=== PATIENT | female | born 1945 | race Caucasian/White ===

== ENCOUNTER → 2023-11-17 | Outpatient (CLI) | payer MEDICARE, SELFPAY ==
--- NOTE | 2023-11-17 10:00 | PET_ITS ---
EXAMINATION: FDG PET/CT ? INDICATIONS: 78-year-old female with a history of primary lung carcinoma, presenting for initial staging examination. ? COMPARISON EXAMINATION: None available ? INDEX LESION SIZE SUV INTERPRETATION Left upper lung, left upper lobe 17.2 mm 9.7 Fulfills quantitative criteria for viable neoplasm ? Bilateral thoracic perihilum 9.3 mm, largest 3.6 max Fulfills borderline quantitative criteria for viable neoplasm ? TECHNIQUE: Following the intravenous administration of 14.33 mCi of F-18 deoxyglucose via the right hand, multiplanar image acquisitions of the head, neck, chest, abdomen and pelvis to the level of the midthigh, obtained at one-hour post radiopharmaceutical administration contemporaneously interpreted with the current CT of the chest, abdomen and pelvis dated 11/17/2023 via coregistration reveal: SERUM GLUCOSE LEVEL:? 76 mg/dL? HEIGHT:?? 63 inches WEIGHT:?? 120 pounds ? FINDINGS: ? HEAD/NECK:? There is no evidence of abnormal increased glucose metabolism in the pharyngeal mucosal space, parapharyngeal space, oropharynx, bilateral-lateral and anterior neck, hypopharynx and distribution of the larynx. ? The visualized portion of the cerebral cortical-subcortical structures demonstrate symmetric and preserved glucose metabolism. ? CHEST: Facilitated FDG concentration is noted in the left upper anterior lung zone, left upper lobe. The calculated maximum standard uptake value is 9.7. The maximum axial diameter of the metabolic, morphologic abnormality is 17.2 mm. Increased labeled glucose is identified in the bilateral thoracic perihilum. The calculated maximum standard uptake value is 3.6. The maximum axial diameter of the largest soft tissue density is 9.3 mm. ? CT of the chest demonstrates the following anatomic characteristics: Coronary arterial calcification is observed. No additional parenchymal densities-nodules are demonstrated within the bilateral hemithorax with increased FDG uptake. Right and left axillary soft tissue densities are ametabolic. ? ABDOMEN/PELVIS:? Normal physiologic distribution of the radiopharmaceutical is identified in the hepatic (2.7) and splenic parenchyma, both renal units, urinary bladder, and visualized intestinal tract. ? CT of the abdomen and pelvis is remarkable for the following: Calcifications are defined within the splenic parenchyma. Cholelithiasis is identified. Calcified phlebolith formation is noted in the bilateral lower hemipelvis. Calcification is noted within the retained uterus. Right and left inguinal soft tissue densities are ametabolic. ? SKELETAL:? Degenerative changes defined in the thoracic and lumbar spine demonstrate no evidence of increased glucose metabolism. There are no sclerotic, mixed sclerotic-lytic, or primarily lytic changes defined in the axial skeletal structures with evidence of increased FDG uptake. ? PET/PET/CT Tumor Base -Thigh Init IMPRESSION: 1. ABNORMAL EXAMINATION INDICATIVE OF MALIGNANT-VIABLE NEOPLASM. 2. Increased radiopharmaceutical concentration apparent in the left upper lung field, left upper lobe, fulfills quantitative criteria for malignant transformation. 3. Facilitated FDG concentration manifest in the bilateral thoracic perihilum fulfill borderline quantitative criteria for viable neoplasm. (Katelynn et al, Journal of Clinical Oncology, 16:2142, 1998). ? Electronic Signature Ruy Gonzalez D.O. Accurate Quantification of SUVs for this report are calculated using the exclusive [employer]. ([place] Patent No. [id number] B2 [phone] [place] patent [phone]). Standardization and correction of the FDG SUV metric via [employer] technology allow for vendor non-specific objective quantitative examination comparison and optimization of the sensitivity and specificity of the FDG PET-CT examination. . [email or web address] Electronically Signed: Ruy Gonzalez DO at 23:38 EST ,
--- OUTSIDE RECORDS SUMMARY | 2023-11-17 10:35 | XMS RPT_ITS | CCD ---
Author Name Unknown Address [address] [place] [address] Organization [facility] Care Team Providers Care Snack Foods Mixer Operator Name Role Phone JACOB BLACK Unavailable Unavailable VACCARIELLOANNETTA Unavailable Unavailable HAMDAN FIRAS M A Unavailable Unavailable HAMDAN FIRARACELI M A Unavailable Unavailable VACCARIEVIN CHAPARRO Unavailable Unavailable RIDERSABAS Unavailable Unavailable SABAS LEVY Unavailable Unavailable SHAYY ESPINOZA Unavailable Unavailable Annetta Villalobos MD Unavailable [phone] Sadiq SEGURA, Dr. Tommy Parish Unavailable [phone] Dr. Chris Grijalva MD Unavailable [facility] ([place]) Unavailable AmeRETIRED Dr. Cate SEGURA Unavailable Israel Glass, [facility] Unavailable Lisa vailable Maude TRAIN DRIVER, Fe Unavailable Brandi Callahan Unavailable Unavailable Rudi HOUSER, Dannielle Unavailable [place]augh TRAIN DRIVER, Porsche K Unavailable Unavai lable Vess TRAIN DRIVER, Neilee L Unavailable Unavailable Zaugg TRAIN DRIVER, Trisha Unavailable Unavailable Unavailable Unavailable ANNETTA VILLALOBOS Consulting Unavailable ANNETTA VILLALOBOS Referring Unavailable ANNETTA SHUKLA MD Admitting Unavailable ANNETTA SHUKLA MD Primary Care Unavailable ANNETTA SHUKLA MD Attending Unavailable PROVIDER, UNKNOWN Consulting Unavailable PROVIDER, UNKNOWN Consulting Unavailable PROVIDER, UNKNOWN Consulting Unavailable Jenaro SEGURA, Dr. Collin Mullen Unavailable Medications Completed/Discontinued Medications Medication Drug Class(es) Dates Sig (Normalized) Sig (Original) ascorbic acid 500 mg chewable tablet (5 sources) Vitamin C Vitamin C 500 MG Oral Tablet Chewable ; (500 MG) Status: Inactive aspirin 325 mg oral tablet (5 sources) Platelet Aggregation Inhibitor, Nonsteroidal Anti-inflammatory Drug Aspirin 325 MG Oral Tablet ; (325 MG) Status: Inactive 12 hr dextromethorphan polistirex 6 mg/ml extended release suspension (5 sources) Uncompetitive V-bndvzw-R-aspartat e Receptor Antagonist, Sigma-1 Agonist Delsym 30 MG/5ML Oral Suspension Extended Release ; (30 MG/5ML) Status: Inactive ergocalciferol 1.25 mg oral capsule (5 sources) Provitamin D2 Compound take 1 capsule by mouth once Vitamin D (Ergocalciferol ) 1.25 MG (48708 UT) Oral Capsule ; (1.25 MG (63049 UT)) Status: Inactive meclizine hydrochloride 25 mg oral tablet (5 sources) Antiemetic Start: 12-04-2016 End: 06-05-2017 take 1 tablet by mouth every eight hours as needed Meclizine HCl 25 MG Oral Tablet ; 1 (one) Tablet Tablet every eight hours, as needed for 0 days Quantity: 20 {Tablet} Refills: 0 Ordered: 05-Jun-2017 EDGAR Santoro Start: 04-Dec-2016 End: 05-Jun-2017 Status: Inactive Comments: Medication taken as needed. Problems Active Problems Problem Classification Problem Date Documented Date Episodic/Chronic Adjustment disorders (10 sources) Grief finding; Translations: [Adjustment disorder with depressed mood] 04-15-2023 Chronic Administrative/social admission (20 sources) Caregiver role strain; Translations: [Dependent relative needing care at home] 10-10-2022 Episodic Cardiac dysrhythmias (15 sources) Multiple premature ventricular complexes; Translations: [Ventricular premature depolarization] 06-10-2017 Chronic Cardiac dysrhythmias (20 sources) Palpitations; Translations: [Palpitations] 02-01-2016 Episodic Conditions associated with dizziness or vertigo (7 sources) Dizziness; Translations: [Dizziness and giddiness] 06-02-2016 Episodic Essential hypertension (20 sources) Hypertensive disorder; Translations: [Essential (primary) hypertension] 07-13-2023 Chronic Menopausal disorders (10 sources) Postmenopausal bleeding 09-13-2010 Chronic Mood disorders (10 sources) Seasonal affective disorder; 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] 08-10-2019 Chronic Nausea and vomiting (5 sources) Vomiting; Translations: [Vomiting, unspecified] 08-27-2011 Episodic Nonspecific chest pain (5 sources) Other chest pain 09-05-2010 Episodic Other aftercare (9 sources) Post-discharge follow-up; Translations: [Encounter for follow-up examination after completed treatment for conditions other than malignant neoplasm] 12-24-2020 Episodic Other aftercare (5 sources) Long-term (current) use of other medications 05-09-2011 Episodic Other and unspecified benign neoplasm (10 sources) History of polyp of colon; Translations: [Personal history of colonic polyps] 07-13-2023 Episodic Other infections; including parasitic (15 sources) Personal history of other infectious and parasitic diseases Onset: 10-05-2020 07-13-2023 Episodic Other lower respiratory disease (5 sources) H/O: pneumonia; Translations: [Personal history of pneumonia (recurrent)] 12-24-2020 Episodic Other lower respiratory disease (10 sources) Dyspnea on exertion; Translations: [Shortness of breath] 02-01-2016 Episodic Other lower respiratory disease (2 sources) Solitary nodule of lung; Translations: [Solitary pulmonary nodule] 10-19-2023 Episodic Other nutritional; endocrine; and metabolic disorders (10 sources) Overweight in adulthood with body mass index of 25 or more but less than 30; Translations: [Body mass index (BMI) 25.0-25.9, adult] 03-28-2021 Episodic Other screening for suspected conditions (not mental disorders or infectious disease) (20 sources) Patient encounter status; Translations: [Encounter for screening for cardiovascular disorders] 03-26-2021 Episodic Residual codes; unclassified (15 sources) Body mass index 20-24 - normal; Translations: [Body mass index (BMI) 22.0-22.9, adult] 07-13-2023 Episodic Residual codes; unclassified (20 sources) Genetic disorder carrier; 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 The patient has a balanced diet and takes supplemental vitamins. The patient exercises 3 - 4 times per week and sleeps 7 hours per night. The patient denies having trouble with bathing, dressing/grooming, toileting, preparing meals and ambulating. The patient denies having trouble with grocery shopping, driving, use of telephone, housework, laundry, preparing/taking medications and finances. The patient does not perform monthly breast self exam. The patient has a Healthcare Power of Passenger Rate Clerk and a Living Will. Note for [facility] Well Adult : -Spouse this year. 07-13-2023 Unclassified (3 sources) Transition into care - The patient is transitioning into care from a hospital and a summary of care was reviewed. 12-24-2020 Unclassified (1 source) [ADDITIONAL REASON] Follow up from hospital stay - Name of Hospital: . Date of Admission: 12/10/20. Date of Discharge: 12/14/20. The patient was hospitalized for pneumonia. New medications include see list. Patient was discharged to home. Note for Follow up from hospital stay : -She is feeling much better. 12-24-2020 Unclassified (5 sources) [facility] Well Adult - In general the patient feels well with no complaints, has good energy level and is sleeping well. The patient has a balanced diet and takes supplemental vitamins. The patient exercises weekly and sleeps 7 hours per night. The patient denies having trouble with bathing, dressing/grooming, toileting, preparing meals and ambulating. The patient denies having trouble with grocery shopping, driving, use of telephone, housework, laundry, preparing/taking medications and finances. The patient does not perform monthly breast self exam. The patient does not have Healthcare Power of Passenger Rate Clerk or Living Will. 08-10-2019 Unclassified (2 sources) [ADDITIONAL REASON] Follow up from hospital stay - Name of Hospital: [place]. Date of Admission: 05/31. Date of Discharge: 06/01/17. The patient was hospitalized for procedure by cardio. No new medications were prescribed. Consultations ordered while in the hospital include cardiology. No post hospital therapies were ordered. Patient was discharged to home. Current Symptoms: no symptoms. 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 She will see him again 07/01. She is to have her bilateral groin incision sites checked here. The metoprolol has been stopped for now.She has no concerns. 06-05-2017 Unclassified (5 sources) Unspecified Diagnosis 01-19-2017 Unclassified (1 source) MCR Well Adult - In general the patient feels well with minor complaints, has decreased energy level and is sleeping poorly. The patient has a balanced diet and takes supplemental vitamins. The patient does not exercise and sleeps 7 hours per night. The patient denies having trouble with bathing, dressing/grooming, toileting, preparing meals and ambulating. The patient denies having trouble with grocery shopping, driving, use of telephone, housework, laundry, preparing/taking medications and finances. The patient does not perform monthly breast self exam. The patient does not have Healthcare Power of Passenger Rate Clerk or Living Will. 01-15-2017 Unclassified (1 source) [ADDITIONAL REASON] Follow-up for multiple chronic conditions (RAH) - The patient is here for follow-up of hypertension. The patient always takes the prescribed medications. No side effects noted. The patient has an active lifestyle but no regular exercise program. The patient's out of office blood pressure checks occur rarely and dietary compliance is good with close adherance to recommendations. The patient has been seen by an travel specialist in the past 12 months and experienced symptoms of low blood sugar more than once since the last rtn visit (tired), but has not had numbness in the feet, had tingling in the feet, had burning in the feet, had an A1c level completed in the past 3 months or had a chemistry profile completed since the last visit. The patient's last lipid profile was (04/2012). The patient states that weight has increased (up by 2#). Note for Multiple chronic conditions follow-up : sees Line Staker for palpitationshas appt the end of 01-15-2017 Unclassified (5 sources) MCR Well Adult - In general the patient feels well with minor complaints (nightsweats, cataracts, difficulty swallowing, chest pain, irregular heartbeat, diarrhea and constipation, muscle pain and easy bruising). The patient does not exercise. Over the past 2 weeks, the patient has not been feeling down, depressed, or hopeless or feeling little interest or pleasure in doing things. The patient denies having trouble with bathing, dressing/grooming, toileting, preparing meals and ambulating. The patient denies having trouble with grocery shopping, driving, use of telephone, housework, laundry, preparing/taking medications and finances. The first day of the last menstrual period was : (remote). Date of most recent cholesterol screening : (2005). There has been no glucose screening. Patient has not had a Zostavax vaccine. Patient has not had a Pneumovax vaccine. Patient has not received a recent influenza vaccine. Patient has not been immunized against Tetanus. Most recent Pap smear : (2005 normal). Patient has not had a screening mammogram. Patient has not had bone density screening. 04-12-2012 Unclassified (5 sources) follow up - She is here for follow up of hypertension and heart palpitations. She last saw her sock knitter, Dr. Levy, in August 2009 and he suggested follow up with her primary care. She was here last August for other problems and this was addressed somewhat then. She continues to have days with irregular heart rate and this is one of those days. She plans to get Medicare within a few months and will pursue getting the recommended colonoscopy at that time. 06-02-2011 Unclassified (5 sources) Vaginal bleeding - The bleeding has been occurring for 1 day. The bleeding has been described as spotting (one day). The patient is not currently bleeding. No tissue or blood clots were noted with the bleeding. The first date of the last menstrual period was : (no menses x 18 years or more). Menstruation is absent (menopausal). Currently : no. There is a medical history of ectopic and tubal sterilization. 09-05-2010 Unclassified (4 sources) Follow up from hospital stay - Name of Hospital: [facility] Date of Admission: 12/10/20. Date of Discharge: 12/14/20. The patient was hospitalized for pneumonia. New medications include see list. Patient was discharged to home. Note for Follow up from hospital stay : -She is feeling much better. 12-24-2020 Unclassified (7 sources) [ADDITIONAL REASON] Transition into care - The patient is transitioning into care from a hospital and a summary of care was reviewed. 12-24-2020 Unclassified (3 sources) Follow up from hospital stay - Name of Hospital: [place]. Date of Admission: 05/31. Date of Discharge: 06/01/17. The patient was hospitalized for procedure by cardio. No new medications were prescribed. Consultations ordered while in the hospital include cardiology. No post hospital therapies were ordered. Patient was discharged to home. Current Symptoms: no symptoms. 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 She will see him again 07/01. She is to have her bilateral groin incision sites checked here. The metoprolol has been stopped for now.She has no concerns. 06-05-2017 Unclassified (4 sources) Follow-up for multiple chronic conditions (RAH) - The patient is here for follow-up of hypertension. The patient always takes the prescribed medications. No side effects noted. The patient has an active lifestyle but no regular exercise program. The patient's out of office blood pressure checks occur rarely and dietary compliance is good with close adherance to recommendations. The patient has been seen by an travel specialist in the past 12 months and experienced symptoms of low blood sugar more than once since the last rtn visit (tired), but has not had numbness in the feet, had tingling in the feet, had burning in the feet, had an A1c level completed in the past 3 months or had a chemistry profile completed since the last visit. The patient's last lipid profile was (04/2012). The patient states that weight has increased (up by 2#). Note for Multiple chronic conditions follow-up : sees Line Staker for palpitationshas appt the end of 01-15-2017 Unclassified (4 sources) [ADDITIONAL REASON] MCR Well Adult - In general the patient feels well with minor complaints, has decreased energy level and is sleeping poorly. The patient has a balanced diet and takes supplemental vitamins. The patient does not exercise and sleeps 7 hours per night. The patient denies having trouble with bathing, dressing/grooming, toileting, preparing meals and ambulating. The patient denies having trouble with grocery shopping, driving, use of telephone, housework, laundry, preparing/taking medications and finances. The patient does not perform monthly breast self exam. The patient does not have Healthcare Power of Passenger Rate Clerk or Living Will. 01-15-2017 Unclassified (1 source) Follow up from hospital stay - Name of Hospital: [facility] Date of Admission: 10/14/23. The patient was hospitalized for elevated bp. 10-19-2023 Unclassified (1 source) Follow up from hospital stay - Name of Hospital: [facility] Date of Admission: 10/14/23. The patient was hospitalized for dizziness and elevated bp. Patient was discharged to home. Note for Follow up from hospital stay : -ER note does not indicate what bp was at admission. Eventually at d/c bp was 134/76. She was sent home with ondansetron which she feels makes her weak. She had a normal EKG and normal labs. They did tell her she needs follow up for a lung nodule. 10-19-2023 Results Test Name Value Interpretation Reference Range Facil ity Vital Signs Date Time Vital Sign Value Performing Clinician Miriam arora 10-19-2023 13:38-0500 Body height 157.48 cm Annetta Mayfield Work Phone: [employer]; [employer] 10-19-2023 13:38-0500 Body mass index (BMI) [Ratio] 23.05 kg/m2 Annetta Villalobos MD Work Phone: [employer]; [employer]. 10-19-2023 13:38-0500 Body surface area Derived from formula 1.57 m2 Annetta Villalobos MD Work Phone: [employer]; [employer]. 10-19-2023 13:38-0500 Body weight 57.15 kg Annetta Mayfield Work Phone: [employer]; [employer]. 10-19-2023 13:38-0500 Diastolic blood pressure 70 mm[Hg] Annetta Villalobos MD Work Phone: [employer]; [employer] Encounters Encounter Date Encounter Type Care Provider Facility Start: 10-19-2023 End: 10-19-2023 Office outpatient visit 25 minutes Annetta Villalobos MD Work Phone: [employer] Start: 10-19-2023 Follow-up encounter Annetta workman MD Work Phone: [employer] Start: 10-14-2023 End: 10-14-2023 Emergency department patient visit ANNETTA VILLALOBOS [facility] Start: 08-14-2023 End: 08-14-2023 Historical Summary Annetta Villalobos MD Work Phone: [employer] Start: 07-13-2023 End: 07-13-2023 Patient encounter procedure Annetta Villalobos MD Work Phone: [employer] Start: 07-06-2023 End: 07-06-2023 Orders Annetta Villalobos MD Work Phone: [employer] Start: 07-01-2023 End: 07-01-2023 Procedure Annetta Villalobos MD Work Phone: [employer] Start: 04-15-2023 End: 04-15-2023 Patient encounter procedure Annetta Villalobos MD Work Phone: [employer] Start: 10-10-2022 End: 10-10-2022 Patient encounter procedure Annetta Villalobos MD Work Phone: [employer] Start: 04-09-2022 End: 04-09-2022 Patient encounter procedure Fe Santoro LPN Work Phone: [employer] Start: 04-01-2022 End: 04-02-2022 Orders Annetta Villalobos MD Work Phone: [employer] Start: 02-12-2022 End: 02-12-2022 Orders Annetta Villalobos MD Work Phone: [employer] Start: 09-20-2021 End: 09-20-2021 Patient encounter procedure Annetta Villalobos MD Work Phone: [employer] Start: 03-28-2021 End: 03-28-2021 Patient encounter procedure Annetta Villalobos MD Work Phone: [employer] Start: 03-28-2021 End: 03-28-2021 Historical Summary Annetta Villalobos MD Work Phone: [employer] Start: 03-20-2021 End: 03-20-2021 Orders Annetta Villalobos MD Work Phone: [employer] Start: 02-26-2021 End: 02-27-2021 Orders Annetta Villalobos MD Work Phone: [employer] Start: 12-24-2020 End: 12-24-2020 Patient encounter procedure Annetta Villalobos MD Work Phone: [employer] Start: 03-08-2020 End: 03-08-2020 Follow-up encounter Annetta Villalobos MD Work Phone: [employer] Start: 08-10-2019 End: 08-10-2019 Patient encounter procedure Annetta Villalobos MD Work Phone: [employer] Start: 07-28-2019 End: 07-28-2019 Orders Annetta Villalobos MD Work Phone: [employer] Start: 07-01-2019 End: 07-01-2019 Orders Annetta Villalobos MD Work Phone: [employer] Start: 09-04-2017 End: 09-04-2017 Patient encounter procedure Annetta Villalobos MD Work Phone: [employer] Start: 07-28-2017 End: 07-28-2017 Telephone follow-up Annetta Villalobos MD Work Phone: [employer] Start: 07-27-2017 End: 07-28-2017 Bowen VILLALOBOS Facility:A Start: 06-10-2017 End: 06-10-2017 Serafin Villalobos MD Work Phone: [employer] Start: 06-05-2017 End: 06-05-2017 Orders Annetta Villalobos MD Work Phone: [employer] Start: 06-05-2017 End: 06-05-2017 Patient encounter procedure Annetta Villalobos MD Work Phone: [employer] Start: 06-04-2017 End: 06-04-2017 Historical Summary Annetta Villalobos MD Work Phone: [employer] Start: 06-03-2017 End: 06-03-2017 Telephone follow-up Annetta Villalobos MD Work Phone: [employer] Start: 06-01-2017 End: 06-02-2017 [facility] JACOB BLACK Facility:A Start: 01-19-2017 End: 01-19-2017 Orders Annetta Villalobos MD Work Phone: [employer] Start: 01-15-2017 End: 01-15-2017 Patient encounter procedure Annetta Villalobos MD Work Phone: [employer] Start: 01-15-2017 End: 01-15-2017 Patient encounter status Annetta Villalobos MD Work Phone: [employer]; [employer]. Start: 06-02-2016 End: 06-02-2016 Orders Annetta Villalobos MD Work Phone: [employer] Start: 02-01-2016 End: 02-01-2016 Orders Annetta Villalobos MD Work Phone: [employer]. Start: 01-02-2016 End: 01-02-2016 Historical Summary Annetta Villalobos MD Work Phone: [employer] Start: 12-21-2015 End: 12-21-2015 Patient encounter procedure Annetta Villalobos MD Work Phone: [employer] Start: 10-23-2014 End: 10-23-2014 Patient encounter procedure Annetta Villalobos MD Work Phone: [employer] Start: 10-21-2013 End: 10-21-2013 Patient encounter procedure Annetta Villalobos MD Work Phone: [employer] Start: 12-01-2012 End: 12-01-2012 Historical Summary Annetta Villalobos MD Work Phone: [employer] Start: 04-21-2012 End: 04-21-2012 Historical Summary Annetta Villalobos MD Work Phone: [employer] Start: 04-14-2012 End: 04-14-2012 Orders Annetta Villalobos MD Work Phone: [employer] Start: 04-12-2012 End: 04-12-2012 Patient encounter procedure Annetta Villalobos MD Work Phone: [employer] Start: 04-12-2012 End: 04-12-2012 Routine general medical examination at a [facility] facility Annetta Villalobos MD Work Phone: [employer]; [employer] Start: 08-27-2011 End: 08-27-2011 Medication Annetta Villalobos MD Work Phone: [employer] Start: 06-02-2011 End: 06-02-2011 Patient encounter procedure Annetta Villalobos MD Work Phone: [employer] Start: 05-09-2011 End: 05-09-2011 Medication Annetta Villalobos MD Work Phone: [employer] Start: 09-19-2010 End: 09-19-2010 Preoperative state Annetta Villalobos MD Work Phone: [employer]; [employer]. Start: 09-19-2010 End: 09-19-2010 Procedure Annetta Villalobos MD Work Phone: [employer] Start: 09-13-2010 End: 09-13-2010 Orders Annetta Villalobos MD Work Phone: [employer] Start: 09-05-2010 End: 09-05-2010 Patient encounter procedure Annetta Villalobos MD Work Phone: [employer]. Patient encounter procedure Fe Santoro TRAIN DRIVER Work Phone: [employer] [employer]. Patient encounter procedure Fe Santoro TRAIN DRIVER Work Phone: [employer] [employer]. Procedures Date Procedure Procedure Detail Performing Clinician Start: 10-19-2023 End: 10-19-2023 Most recent diastolic blood pressure < 80 mm hg Annetta Villalobos MD Work Phone: Start: 10-19-2023 End: 10-19-2023 Most recent systolic blood pres>/equal 140 mm hg Annetta Villalobos MD Work Phone: Start: 10-14-2023 Urinalysis ANNETTA WORKMAN Plan of Treatment Date Care Activity Detail Author Start: 07-01-2019 Mammogram, screening Mammogram , Bilateral Screening Start: 01-Jul-2019 Intent [employer] [employer]. Immunizations Immunization Date Immunization Notes Care Provider Elsa avila 08-10-2019 zoster vaccine, live Annetta negrete MD Work Phone: [employer] [employer] Payers Date Payer Category Payer Unknown [id number] 1945 Unknown [id number] Medicare [id number] Unknown [facility] Social History Date Type Detail Facility Caffeine Use Caffeine Use [employer]. Tobacco Use: Tobacco Use: ; Never smoker. [employer] [employer]. Female [employer]. Work Phone: Never smoked tobacco [employer] [employer]. Work Phone: Summary Purpose Family History Arthritis Status:Active Comments:grandfa ther Cerebrovascular Accident Status:Active Comment s:aunt Coronary Artery Disease Status:Active Comments :Mother. grandmother Diabetes Mellitus Type II Status:Active Commen ts:mother, aunt Father Status:Active Comments: d. Lung Cancer Status:Active Comments:Father. Mother Status:Active Comments: d. in her 80's Ovarian Cancer Status:Active Comments:Mother. Uterine Cancer (Renamed from uterin cancer) Status:Active Comments:mother of this in her 80s Arthritis Status:Active Comments:grandfa ther Cerebrovascular Accident Status:Active Comment s:aunt Coronary Artery Disease Status:Active Comments :Mother. grandmother Diabetes Mellitus Type II Status:Active Commen ts:mother, aunt Father Status:Active Comments: d. Lung Cancer Status:Active Comments:Father. Mother Status:Active Comments: d. in her 80's Ovarian Cancer Status:Active Comments:Mother. Uterine Cancer (Renamed from uterin cancer) Status:Active Comments:mother of this in her 80s Arthritis Status:Active Comments:grandfa ther Cerebrovascular Accident Status:Active Comment s:aunt Coronary Artery Disease Status:Active Comments :Mother. grandmother Diabetes Mellitus Type II Status:Active Commen ts:mother, aunt Father Status:Active Comments: d. Lung Cancer Status:Active Comments:Father. Mother Status:Active Comments: d. in her 80's Ovarian Cancer Status:Active Comments:Mother. Uterine Cancer (Renamed from uterin cancer) Status:Active Comments:mother of this in her 80s Arthritis Status:Active Comments:grandfa ther Cerebrovascular Accident Status:Active Comment s:aunt Coronary Artery Disease Status:Active Comments :Mother. grandmother Diabetes Mellitus Type II Status:Active Commen ts:mother, aunt Father Status:Active Comments: d. Lung Cancer Status:Active Comments:Father. Mother Status:Active Comments: d. in her 80's Ovarian Cancer Status:Active Comments:Mother. Uterine Cancer (Renamed from uterin cancer) Status:Active Comments:mother of this in her 80s Arthritis Status:Active Comments:grandfa ther Cerebrovascular Accident Status:Active Comment s:aunt Coronary Artery Disease Status:Active Comments :Mother. grandmother Diabetes Mellitus Type II Status:Active Commen ts:mother, aunt Father Status:Active Comments: d. Lung Cancer Status:Active Comments:Father. Mother Status:Active Comments: d. in her 80's Ovarian Cancer Status:Active Comments:Mother. Uterine Cancer (Renamed from uterin cancer) Status:Active Comments:mother of this in her 80s Advance Directives No Advanced Directives Records FoundNo Advanced Directives Records FoundNo Advanced Directives Records Found Additional Source Comments INFORMATION SOURCE (unrecogn ized section and content) DATE CREATED AUTHOR AUTHOR'S ORGANIZ ATION 07/11/2023 [facility] DATE CREATED AUTHOR AUTHOR'S ORGANIZ ATION 10/17/2023 [facility] FOR RECORDS PERTAINING TO PATIENTS WHO ARE OR HAVE BEEN ENROLLED IN A CHEMICAL DEPENDENCY/SUBSTANCEABUSE PROGRAM, SOME INFORMATION MAY BE OMITTED. This clinical summary was aggregated from multiple sources. Caution should be exercised in using it in the provision of clinical care. This summary normalizes information from multiple sources, and as a consequence, information in this document may materially change the coding, format and clinical context of patient data. In addition, data may be omitted in some cases. CLINICAL DECISIONS SHOULD BE BASED ON THE PRIMARY CLINICAL RECORDS. [employer] provides no warranty or guarantee of the accuracy or completeness of information in this document.
== END | disposition home or self-care (01) ==
PROVIDERS: PCP Family Medicine; Referring Provider Internal Medicine Pulmonary Disease; Visit Provider Internal Medicine Pulmonary Disease
DX: R91.1 Solitary pulmonary nodule (principal)
CPT/HCPCS: 78815; A9552

== ENCOUNTER → 2023-11-23 | Outpatient (CLI) | payer MEDICARE, SELFPAY ==
[2023-11-25 18:08] LABS: QNTFERON TB Mitogen Value > 10.00 IU/mL (.); QNTFERON TB Nil Value 0.09 IU/mL (.); QNTFERON TB1+ Ag Value 0.07 IU/mL (.); QNTFERON TB2+ Ag Value 0.07 IU/mL (.); QNTIFERON TB Positive Criteria Negative (Negative)
== END | disposition home or self-care (01) ==
PROVIDERS: PCP Family Medicine; Referring Provider Internal Medicine Pulmonary Disease; Visit Provider Internal Medicine Pulmonary Disease
DX: R91.1 Solitary pulmonary nodule (principal)
CPT/HCPCS: 36415; 86480